=== PATIENT | male | born 1995 | race Caucasian/White ===

== ENCOUNTER 2023-08-13 22:35 | Emergency (ER) | payer OTHER, SELFPAY ==
--- NOTE | 2023-08-13 22:36 | USR_ITS ---
PROCEDURE INFORMATION: Exam: US Scrotum Exam date and time: 08/13/2023 11:42 PM Age: 27 years old Clinical indication: Scrotum pain; Additional info: Testicle pain TECHNIQUE: Imaging protocol: Real-time ultrasound of the scrotum and contents with color Doppler and image documentation. COMPARISON: US pelvic limited [id number] 06/09/2022 1:28 PM FINDINGS: Right testicle: Normal. No mass. No torsion. Normal vascular flow. Left testicle: No mass. No torsion. There is hyperemia consistent with epididymo-orchitis. Epididymides: The left epididymis is hyperemic consistent with epididymo-orchitis. The right epididymis contains spermatoceles or epididymal cysts large as 2.9 x 1.4 cm. Scrotum/soft tissues: Minimal left hydrocele. US/US scrotum [id number] IMPRESSION: 1. Findings consistent with left epididymo-orchitis. 2. No evidence of torsion. 3. Right epididymal cysts or spermatoceles.
[2023-08-13 23:04] VITALS: BP 142/115; PULSE 98; RESP 16; TEMP 37.4; O2SAT 97; BMI 29.3
[2023-08-13] MEDS: ketorolac 30 mg/mL INJ IM (23:26)
--- NOTE | 2023-08-13 23:27 | W.ED.MALEGU ---
HPI - Male Genitourinary General: Chief complaint: Urogenital-Male Stated complaint: testicular pain Time Seen by Provider: 08/13/23 22:37 Source: patient Mode of arrival: ambulatory Limitations: no limitations History of Present Illness: 27-year-old male states been having left-sided testicle pain over the last 2 days. He states the pain is sharp in nature. States it is worse with movement denies any vomiting or diarrhea he denies any abdominal or flank pain. Associated symptoms: Deny dysuria, nausea or vomiting Review of Systems Const: Denies: fever(s), chills, body aches or change in appetite ENMT: Denies: throat pain or dental pain Card: Denies: chest pain Resp: Denies: dyspnea GI: Denies: abdominal pain, nausea, vomiting or diarrhea : Reports: testicular pain; Denies: dysuria Musc: Denies: neck pain or back pain Skin/Breast: Denies: rash Neuro: Denies: headache(s) Physical Exam Const: COMMON NORMALS: no acute distress, patient oriented x3 and healthy appearing HENMT: COMMON NORMALS: normocephalic and atraumatic HEAD & SCALP: normocephalic and atraumatic Neck/C-Spine: COMMON NORMALS: full ROM and supple Chest: COMMONS NORMALS: normal inspection of the chest Resp: COMMON NORMALS: normal respiratory effort GI: COMMON NORMALS: Normal to inspection, nondistended, normoactive bowel sounds present, Soft to palpation, non-tender and no masses PALPATION: Yes Soft to palpation : OTHER: Tenderness noted to left testicle Extremity: COMMON NORMALS: normal to inspection and full ROM Neuro: COMMON NORMALS: patient oriented x3, moves all extremities and no focal motor deficits Psych: COMMON NORMALS: mental status grossly normal, Normal thought process present and cooperative THOUGHT PROCESS: Normal thought process present Skin: COMMON NORMALS: no rashes or lesions noted and no wounds GENERAL SKIN EXAM: no rashes or lesions noted Course Vital Signs: Vital signs: Vital Signs Temperature 99.3 F 08/13/23 23:04 Pulse Rate 98 08/13/23 23:04 Respiratory Rate 16 08/13/23 23:04 Blood Pressure 142/115 08/13/23 23:04 Pulse Oximetry 97 08/13/23 23:04 Oxygen Delivery Me thod Room Air 08/13/23 23:04 MDM - Male Medical Decision Making Patient presents with testicle pain ultrasound shows likely epididymitis will treat with doxycycline patient's follow-up PCP and return if worsening. Medical Records I reviewed the patient's medical records. XR interpretation done by ED provider, pending radiology final review Discharge Plan Discharge Patient Disposition: Home Clinical Impression: Epididymitis Condition: Stable Prescriptions: New hydrocodone-acetaminophen 5-325 mg tablet 1 tab PO Q6H PRN (Reason: pain) Qty: 14 0RF ondansetron 4 mg tablet,disintegrating 4 mg PO Q6H PRN (Reason: nausea and vomiting) Qty: 14 0RF doxycycline hyclate 100 mg tablet 100 mg PO BID 10 Days Qty: 20 0RF Discharge Orders: Discharge ED (Routine); Ordered 08/14/23 Ordered By: Ruiz Linder Discharge Diet: Advance as tolerated Discharge Activity: Resume usual activity Patient Instructions: Epididymitis (ED), Opioid Safety Coding Level of Care Code ED Paper Control Clerk for Denise Hatfield
--- NOTE | 2023-08-19 10:05 | DCPLANNER ---
I called patient about his urology referral to see where he would like his urology referral sent to. Patient was unware of this referral and said his testicle pain is much better. He denied this referral on 08/19/23 at 10:04 am.
== END 2023-08-14 00:16 | disposition home or self-care (01) ==
PROVIDERS: Emergency Provider Emergency Medicine
DX: N45.1 Epididymitis (principal)
CPT/HCPCS: 76870; 96372; 99284; J1885